=== PATIENT | male | born 1990 | race Caucasian/White ===

== ENCOUNTER 2016-07-30 18:41 | Emergency (ER) | payer SELFPAY ==
[2016-07-30] MEDS ORDERED: KETOROLAC TROMETHAMINE 60 MG/2 ML VIAL ONE (19:25)
--- NOTE | 2016-07-30 20:01 | RAD ---
Name: GEORGE EDWARDS Exam: Left shoulder Comparison: None Clinical history: Trauma 07/16/2016. Increasing left shoulder pain. Findings: 3 views left shoulder submitted. Bone density is normal. There is mild degenerative irregularity of the AC joint. Coracoclavicular joint is normal. Glenohumeral joint where seen is normal. Subacromial space is maintained. There is no fracture, dislocation, periosteal reaction or suspicious soft tissue calcification. Visualized portions left lung is clear. Impression: 1. 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 No acute abnormality
== END 2016-07-30 20:24 | disposition home or self-care (01) ==
LOC: ED 18:41
DX: S49.92XA Unspecified injury of left shoulder and upper arm, initial encounter (principal); X50.9XXA Other and unspecified overexertion or strenuous movements or postures, initial encounter; X50.0XXA Overexertion from strenuous movement or load, initial encounter; Y92.009 Unspecified place in unspecified non-institutional (private) residence as the place of occurrence of the external cause
CPT/HCPCS: 73030; 99283 ×2; 96372; J1885